=== PATIENT | female | born 1965 | race Caucasian/White ===

== ENCOUNTER → 2022-10-17 18:50 | Outpatient (BNVA) | payer OTHER, SELFPAY | PROVIDERS: Family Provider Nurse Practitioner Family; PCP Nurse Practitioner Family; Visit Provider Nurse Practitioner Family | DX: L02.91 Cutaneous abscess, unspecified (principal) | CPT/HCPCS: 87070; 87077; 87184 ==

== ENCOUNTER 2024-08-14 08:02 | Outpatient (CLI) | payer OTHER, SELFPAY ==
--- NOTE | 2024-08-14 08:05 | MM_ITS ---
WS: [id number] BILATERAL SCREENING DIGITAL TOMOSYNTHESIS MAMMOGRAM WITH CAD HISTORY: SCREENING COMPARISON: 12/31/2011 Bilateral CC and MLO views with tomosynthesis and synthetic mammography submitted. Computer aided det ection analyzed. Breast composition: There are scattered areas of fibroglandular density. No suspicious masses, microc alcifications or architectural distortion. Scattered asymmetries and calcifications are similar to th e study from 12/31/2011. No distortion. No mass. MM/MM scr tomosynthesis [id number] IMPRESSION: BI-RADS: 2 - Benign. FOLLOW UP: 1 Year Follow-up
== END 2024-08-14 08:03 | disposition home or self-care (01) ==
LOC: RAD 08:03
PROVIDERS: Family Provider Nurse Practitioner Family; PCP Electrodiagnostic Medicine; Visit Provider Electrodiagnostic Medicine
DX: Z12.31 Encounter for screening mammogram for malignant neoplasm of breast (principal); R92.323 Mammographic fibroglandular density, bilateral breasts; N64.89 Other specified disorders of breast; R92.1 Mammographic calcification found on diagnostic imaging of breast
CPT/HCPCS: 77063; 77067

== ENCOUNTER 2025-03-06 21:22 | Emergency (ER) | payer OTHER, SELFPAY ==
[2025-03-06 21:44] VITALS: BP 164/100; PULSE 87; RESP 18; TEMP 36.7; O2SAT 100; BMI 29.9
--- NOTE | 2025-03-06 22:17 | W.ED.EYEPROB ---
HPI - Eye Problem General: Chief complaint: General Medical Stated complaint: Left Eye Contact Stuck Time Seen by Provider: 03/06/25 22:02 Source: patient Mode of arrival: ambulatory Limitations: no limitations History of Present Illness: Patient is a nice 59-year-old female presents to ED today believing she has a contact stuck to her left eye. Patient states she was attempting to take her contacts out this evening like usual when she felt like she could not remove her left contact. She feels like it is stuck to her cornea. She states she feels like she could feel it moving around but just cannot grab the lip of it to remove it. Attempted multiple times and now her eye is red and painful. chief complaint: eye pain, eye redness and foreign body (contact lens) Onset (ago): hour(s) Duration: constant Location: left eye Eye Symptoms: burning, redness, pain and foreign body sensation (feels like contact is stuck) Place: home Severity: moderate Associated symptoms: Reports no associated symptoms Treatments Prior to Arrival: other (manual attempt at contact removal) Related Data Previous Rx's ?Medication ?Instructions ?Recorded clindamycin HCl 150 mg capsule 450 mg (3 x 150 mg) PO TID 7 days 07/28/24 #63 caps erythromycin 5 mg/gram (0.5 %) eye 1 applic ophthalmic (eye) Q4H 7 03/06/25 ointment (3.5 gram tube) days #1 g Allergies Allergy/AdvReac Type Severity Reaction Status Date / Time Penicillins Allergy Mild RASH Verified 03/06/25 21:48 Tetracyclines Allergy Mild HIVES Verified 03/06/25 21:48 [facility] ED PFSH: Social History Smoking and tobacco/nicotine status: never used tobacco/nicotine Physical Exam Const: COMMON NORMALS: no acute distress, average body habitus, no limitations, healthy appearing, alert and well nourished HENMT: FACE & SINUS: normal facial exam Eye: COMMON NORMALS: Equal, round and reactive pupils present and EOMs intact bilaterally GENERAL EYE: normal light reflex VISUAL ACUITY: Yes acuity normal PERIORBITAL: periorbital findings normal EYELID: eyelids normal CONJUNCTIVA: Yes conjunctival abnormal positive left conjunctival chemosis and conjunctival injection SCLERA: sclerae normal CORNEA: Yes fluorescein used (large left corneal abrasion) PUPIL: Yes Equal, round and reactive pupils present DIRECT OPHTHALMOSCOPY: Yes normal light reflex OTHER: I do not obviously visualize contact although her conjunctiva is swollen now abutting her cornea that it would be hard to visualize the lip of a contact; both upper and lower lids were retracted to look for lens but one was not present; she does appear to have a corneal defect most likely from repeated attempted manual retrieval at home Neuro: SENSORIUM/ORIENTATION: Yes alert Course Vital Signs: Vital signs: Vital Signs Temperature 98.0 F 03/06/25 21:44 Pulse Rate 87 03/06/25 21:44 Respiratory Rate 18 03/06/25 21:44 Blood Pressure 164/100 03/06/25 21:44 Pulse Oximetry 100 03/06/25 21:44 Oxygen Delivery Me thod Room Air 03/06/25 21:44 MDM - Eye Problem Medical Decision Making I do not obviously visualize contact although her conjunctiva is swollen now abutting her cornea that it would be hard to visualize the lip of a contact. Both upper and lower lids were retracted to look for lens but one was not present. Fluorescein stain exam performed and she does appear to have a large corneal defect most likely from repeated attempted manual retrieval at home. Will cover with erythromycin ointment. She will follow-up with her construction project engineer tomorrow. If they cannot see her or feel uncomfortable seeing her, she can contact Dr. Rush's office for ER follow-up. Differential Diagnosis Likely corneal abrasion and conjunctivitis Medical Records I reviewed the patient's medical records. No radiology studies performed this visit Discharge Plan Discharge Patient Disposition: Home Clinical Impression: Corneal abrasion, left Qualifiers: Encounter type: initial encounter Qualified Code(s): S05.02XA - Injury of conjunctiva and corneal abrasion without foreign body, left eye, initial encounter Condition: Stable Prescriptions: New erythromycin 5 mg/gram (0.5 %) ointment 1 applic ophthalmic (eye) Q4H 7 Days Qty: 1 0RF No Action clindamycin HCl 150 mg capsule 450 mg PO TID 7 Days Qty: 63 0RF Discharge Orders: Discharge ED (Routine); Ordered 03/06/25 Ordered By: Mehnaz Brown Referrals: Alfredito Pompa DO [Primary Care Provider, Family Practice] Patient Instructions: Corneal Abrasion (DC) Activity Restrictions/Additional Instructions: As we discussed, I did not definitively visualize a contact lens in your eye. You were found to have a large left corneal abrasion. This can produce a foreign body sensation as well as pain. You will be placed on antibiotic ointment. Please follow-up with your eye doctor tomorrow. If they cannot see you, please contact Dr. Rush's office to see if they can see you as an ER follow-up. 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
[2025-03-06] MEDS: fluorescein 1 mg Strip EYE-LEFT (22:43)
[2025-03-06] MEDS: erythromycin Op Oint 1 gm 1 APPLIC EYE-LEFT (23:06)
== END 2025-03-06 23:09 | disposition home or self-care (01) ==
PROVIDERS: Emergency Provider Physician Assistant; PCP Electrodiagnostic Medicine
DX: S05.02XA Injury of conjunctiva and corneal abrasion without foreign body, left eye, initial encounter (principal); X58.XXXA Exposure to other specified factors, initial encounter
CPT/HCPCS: 99283; J9999